=== PATIENT | female | born 1950 | race Caucasian/White ===

== ENCOUNTER 2020-04-07 13:32 | Outpatient (CLI) | payer MEDICARE, BC ==
--- NOTE | 2020-04-08 22:27 | SLEEP CARE CONSULTATION ---
Information from patient questionnaire entered by Lisa Bryson. I have reviewed and concur with the information entered by Lisa Bryson. This document represents the service I personally performed and the decisions made by me, Luda Rodriguez MD, [facility]. History of Present Illness Service Date and Time: 04/07/2020 1332 Reason for Visit: New patient, Previously diagnosed sleep apnea (Moderate - 22.7 in 2008), sleep apnea on CPAP therapy, Re-establish care Chief Complaint: reports: Other (I have had sleep apnea for 12 years) Duration of Symptoms: 15 years plus Usual bedtime: 10-11 pm Time it takes to fall asleep: 30 min Snores at night: Yes Observed to quit breathing while asleep: Yes Toss, Turn, or Twitch while sleeping: Yes Recalls having dreams: No Usually gets out of bed at: 8:30 am Feels refreshed in the morning: Yes Morning headache: No Sleepy or fatigued during the day: No Ever fallen asleep while driving: Yes Takes day naps: No Dreams during day naps: No Prior sleep studies: Yes Year and Where: 2008 - [facility] Additional HPI information: I had the pleasure of seeing Ms. Byrnes today regarding obstructive sleep apnea-hypopnea. As you know, she is a 69 year old lady who was diagnosed with the sleep-disordered breathing originally in [place] and here in 2008. The AHI was 22.7. She was prescribed a CPAP. She went to live in [place] for a while and got a new machine there three years ago. She thinks it is set on 8 cmH2O. She uses every night and all night. She wears a [employer]ics DreamWear nasal cushion mask. Her machine does not have a memory card and, therefore, we do not have the compliance data. Since she moved back to [facility] several months ago, she has not gotten any supplies. She finds the treatment very beneficial. She tried using an oral appliance but it moved her teeth. - Parasomnia Symptoms Ever been unable to move upon waking from sleep: No Ever felt weak in the knees when startled or emotional: No Bothered by creepy, crawly, restless sensations in legs: No Problems with memory or concentration: No Subjective Initial [place] Sleepiness Scale score: 1 (in 2008) Current [place] Sleepiness Scale score: 21 Past Medical History Past Medical History: reports: Arthritis, Anxiety, Asthma, Depression Social History The patient's occupation is a Retired. Patient is and lives in [place]. Have you smoked in the past 12 months: No Years of smokin Quit date: 1992 Alcohol use: Yes Alcohol amount and frequency: 1 drink 3 days a week Caffeine use: Yes Caffeine amount and frequency: 1 cup coffee Family History Family history of sleep disordered breathing: No Allergies and Home Medications Drug allergies reviewed: Yes Home medication list reviewed: Yes Review of Systems Cardiovascular: reports: palpitations Respiratory: reports: wheeze, other (asthma) Gastrointestinal: denies: heartburn, difficulty swallowing, nausea, vomitting, diarrhea, abdominal pain, other Urinary: denies: incontinence, frequency, urgency, impotence, other Neurological: denies: headaches, seizure, head trauma, disorientation, speech dysfunction, gait or balance problems, fainting or unconsciousness, other Psychiatric: reports: anxiety Ear/Nose/Throat: reports: sinus problems, tonsillectomy, wisdom teeth removed Endocrine: denies: thyroid disease, history of goiter, sluggishness, too hot or cold, excessive thirst, increased appetite, increased urination, unexplained weakness, other Musculoskeletal: denies: joint pain, neck pain, back pain, joint swelling, muscle pain or cramping, mobility problems, other Immunologic: denies: sneezing, rash, itching, allergies to food or environment, other Physical Exam Height: 5 ft 8 in Weight: 213 lb Body Mass Index: 32.3 BMI Classification: Obese Impression and Plan IMPRESSION: 1. Obstructive Sleep Apnea-Hypopnea Syndrome, moderate, as previously diagnosed. The patient has had good treatment compliance. The effectiveness is unknown. The patient experiences improvement on the treatment. Narrow oropharynx and obesity are common predisposing factors for obstructive sleep apnea-hypopnea syndrome. I will order her new supplies. She would like to go back to [facility] where she got her old machine from in 2008. Plan: 1. Prescription made for supplies. 2. The patient is to buy an SD card and put it into her CPAP, so that we have a compliance/efficacy report. 3. Attempt to lose weight. 4. Return for follow up in a year or earlier if there is any problem. Visit Type: In Office Time Spent with Patient (minutes): 15 Provider Statement: I spent 100% of the Face to Face Visit with the patient with greater than 50% spent counseling the patient and coordination of care.
== END 2020-04-07 13:33 | disposition home or self-care (01) ==
LOC: SC 13:32
PROVIDERS: ATTEND Internal Medicine Pulmonary Disease
DX: G47.33 Obstructive sleep apnea (adult) (pediatric) (principal); E66.9 Obesity, unspecified; Z68.32 Body mass index [BMI] 32.0-32.9, adult
CPT/HCPCS: 99203; G0463; 99212

== ENCOUNTER 2020-09-04 | Outpatient (CLI) | payer MEDICARE, BC | END 2020-09-04 15:36 | disposition EMS.NT ==

== ENCOUNTER 2020-10-10 13:50 | Outpatient (CLI) | payer MEDICARE, BC ==
[2020-10-10 22:32] LABS: CANDIDA KRUSEI DNA UNRESOLVED (NEGATIVE)
[2020-10-10 22:33] LABS: CANDIDA GROUP DNA UNRESOLVED (NEGATIVE); TRICHOMONAS VAGINALIS DNA UNRESOLVED (NEGATIVE)
== END 2020-10-10 23:59 | disposition home or self-care (01) ==
LOC: LAB.R 13:50
PROVIDERS: ATTEND Family Medicine
DX: R30.0 Dysuria (principal); N76.0 Acute vaginitis
CPT/HCPCS: 87086; 87661; 87801

== ENCOUNTER 2020-11-16 16:44 | Outpatient (CLI) | payer MEDICARE, BC | END 2020-11-16 16:45 | disposition home or self-care (01) | LOC: COV 16:44 | PROVIDERS: ATTEND Otolaryngology Otology & Neurotology | DX: Z01.812 Encounter for preprocedural laboratory examination (principal); Z20.822 Contact with and (suspected) exposure to COVID-19 ==

== ENCOUNTER 2020-12-27 14:02 | Outpatient (CLI) | payer MEDICARE, BC | END 2020-12-27 23:59 | disposition home or self-care (01) | LOC: LAB.N 14:02 | PROVIDERS: ATTEND Nurse Practitioner | DX: R30.0 Dysuria (principal) | CPT/HCPCS: 87086; 87181 ==

== ENCOUNTER 2020-12-28 20:14 | Emergency (ER) | payer MEDICARE, BC ==
--- OUTSIDE RECORDS SUMMARY | 2020-12-28 20:18 | EXTERNAL MEDICAL SUMMARY RPT | Continuity of Care Document ---
:1950 Demographics Phone Unavailable Preferred Language Unknown Marital Status Unknown Mandaen Affiliation Unknown Race Unknown Ethnic Group Unknown Author Organization [place] Address [address] [phone] Phone Care Team Providers Name Role Phone MD Unavailable Unavailable RN Unavailable Unavailable Problems date description facility [id number] Acute vaginitis All [id number] Urine C&S All [id number] Vaginitis Pathogens-Affirm PROFESSOR OF MATHEMATICS III All [id number] Vulvovaginitis All 98793112 Dysuria All 13803564 Vaginitis and vulvovaginitis, unspecifi ed All Medications date description facility [id number] [facility] All 70848007 BUSPIRONE HCL All 88182447 ESCITALOPRAM OXALATE All 52401479 BUPROPION HCL All 29843173 CIPROFLOXACIN HCL All 26946625 ALBUTEROL SULFATE All 71738063 FLUTICASONE FUROATE-VILANTEROL All 68717664 TIOTROPIUM BROMIDE MONOHYDRATE All 59254568 [facility] All 25296435 FLUTICASONE FUROATE-VILANTEROL All 71640800 CIPROFLOXACIN HCL All 04536115 ESCITALOPRAM OXALATE All 64584922 TIOTROPIUM BROMIDE MONOHYDRATE All 51940047 ALBUTEROL SULFATE All 07129578 BUSPIRONE HCL All 13594874 BUPROPION HCL All 75148368 [facility] All 16414017 BUSPIRONE HCL All 95482544 ESCITALOPRAM OXALATE All 23626638 BUPROPION HCL All 02713326 CIPROFLOXACIN HCL All 08190931 ALBUTEROL SULFATE All 08946153 FLUTICASONE FUROATE-VILANTEROL All 97260057 TIOTROPIUM BROMIDE MONOHYDRATE All 04369073 [facility] TAB[facility] All 76003496 FLUTICASONE FUROATE-VILANTEROL All 17657777 CIPROFLOXACIN HCL All 16918397 ESCITALOPRAM OXALATE All 89213507 TIOTROPIUM BROMIDE MONOHYDRATE All 68639300 ALBUTEROL SULFATE All 72391593 BUSPIRONE HCL All 81332567 BUPROPION HCL All Procedures date description facility [id number] POC URINALYSIS DIP All date description facility 04530755 POC URINALYSIS DIP All Results test status date ordered by attending specimen leonor e T unknown [id number] unknown unknown unknown T unknown 83386633 unknown unknown unknown CANDIDA_GLABRATA_DNA unknown 77011403 unknown unknown un known CANDIDA_KRUSEI_DNA unknown 66525063 unknown unknown unkn own DIPSTICK_URINE_STRIP_L unknown 05735814 unknown unknown unknown OT_NUMBER Candida_glabrata_by_Re unknown 92051989 unknown unknown unknown fd-jhzv_YUT_-_htbcwth_e ulture protein_urine_semiquan unknown 87626612 unknown unknown unknown titative_dipstick_ glucose_urine_semiquan unknown 34032822 unknown unknown unknown titative Erythrocytes_area_in_U unknown 24310291 unknown unknown unknown rine_sediment_by_Micros copy_high_power_field Candida_krusei_by_Real unknown 48669639 unknown unknown unknown -Time_PCR RBC_urine_dipstick unknown 38536223 unknown unknown unkn own Albumin_Presence_in_Ur unknown 66909387 unknown unknown unknown ine urine_color unknown 61087337 unknown unknown unknown bilirubin_urine unknown 88065394 unknown unknown unknown ketones_urine_by_test_ unknown 14081876 unknown unknown unknown strip nitrite_urine_semiquan unknown 56414821 unknown unknown unknown titative pH_urine_semiquantitat unknown 67461256 unknown unknown unknown chong specific_gravity_urine unknown 09118458 unknown unknown unknown urobilinogen_urine_sem unknown 30232667 unknown unknown unknown iquantitative_dipstick_ leukocyte_esterase_uri unknown 50596685 unknown unknown unknown ne_by_dipstick appearance_urine unknown 75586096 unknown unknown unknow n urinalysis_routine unknown 76407842 unknown unknown unkn own Appearance_of_Urine unknown 85626200 unknown unknown unk nown Bilirubin.total_Presen unknown 44677395 unknown unknown unknown ce_in_Urine_by_Test_str ip Color_of_Urine unknown 65060237 unknown unknown unknown Glucose_Mass_volume_in unknown 52395614 unknown unknown unknown _Urine_by_Test_strip Ketones_Mass_volume_in unknown 89443092 unknown unknown unknown _Urine_by_Test_strip Leukocyte_esterase_Pre unknown 39690933 unknown unknown unknown sence_in_Urine_by_Test_ strip Nitrite_Presence_in_Ur unknown 65420876 unknown unknown unknown ine_by_Test_strip pH_of_Urine_by_Test_st unknown 91767612 unknown unknown unknown rip Specific_gravity_of_Ur unknown 05583894 unknown unknown unknown ine_by_Test_strip Urobilinogen_Presence_ unknown 24977823 unknown unknown unknown in_Urine_by_Test_strip Candida_glabrata_DNA_P unknown 59090168 unknown unknown unknown resence_in_Vaginal_flui d_by_NAA_with_probe_det ection T unknown 63495176 unknown unknown unknown T unknown 16150676 unknown unknown unknown CANDIDA_GLABRATA_DNA unknown 00117098 unknown unknown un known CANDIDA_KRUSEI_DNA unknown 30537374 unknown unknown unkn own DIPSTICK_URINE_STRIP_L unknown 24216053 unknown unknown unknown OT_NUMBER Candida_glabrata_by_Re unknown 32331130 unknown unknown unknown if-jxsa_AYZ_-_lzjjrrc_a ulture protein_urine_semiquan unknown 85096213 unknown unknown unknown titative_dipstick_ glucose_urine_semiquan unknown 92955218 unknown unknown unknown titative Erythrocytes_area_in_U unknown 93496187 unknown unknown unknown rine_sediment_by_Micros copy_high_power_field Candida_krusei_by_Real unknown 76853593 unknown unknown unknown -Time_PCR RBC_urine_dipstick unknown 16973509 unknown unknown unkn own Albumin_Presence_in_Ur unknown 91205363 unknown unknown unknown ine urine_color unknown 01048982 unknown unknown unknown bilirubin_urine unknown 94489317 unknown unknown unknown ketones_urine_by_test_ unknown 43833029 unknown unknown unknown strip nitrite_urine_semiquan unknown 16147471 unknown unknown unknown titative pH_urine_semiquantitat unknown 02326127 unknown unknown unknown chong specific_gravity_urine unknown 95626688 unknown unknown unknown urobilinogen_urine_sem unknown 25020925 unknown unknown unknown iquantitative_dipstick_ leukocyte_esterase_uri unknown 88221257 unknown unknown unknown ne_by_dipstick appearance_urine unknown 04560312 unknown unknown unknow n urinalysis_routine unknown 34390441 unknown unknown unkn own Appearance_of_Urine unknown 99297346 unknown unknown unk nown Bilirubin.total_Presen unknown 30490809 unknown unknown unknown ce_in_Urine_by_Test_str ip Color_of_Urine unknown 10941590 unknown unknown unknown Glucose_Mass_volume_in unknown 03400268 unknown unknown unknown _Urine_by_Test_strip Ketones_Mass_volume_in unknown 46976417 unknown unknown unknown _Urine_by_Test_strip Leukocyte_esterase_Pre unknown 32608866 unknown unknown unknown sence_in_Urine_by_Test_ strip Nitrite_Presence_in_Ur unknown 63772019 unknown unknown unknown ine_by_Test_strip pH_of_Urine_by_Test_st unknown 52112716 unknown unknown unknown rip Specific_gravity_of_Ur unknown 58449063 unknown unknown unknown ine_by_Test_strip Urobilinogen_Presence_ unknown 87608669 unknown unknown unknown in_Urine_by_Test_strip Candida_glabrata_DNA_P unknown 72312658 unknown unknown unknown resence_in_Vaginal_flui d_by_NAA_with_probe_det ection facility observation status value reference units lab abnor mal line range code notes All T unknown UNRESOLVED unknown C._GL unknown unknown ABRATA _DNA All T unknown UNRESOLVED unknown C._KR unknown unknown USEI_D NA All CANDIDA_GLAB unknown UNRESOLVED unknown CGLAB unk nown unknown RATA_DNA RATA_D NA All CANDIDA_KRUS unknown UNRESOLVED unknown CKRUS unk nown unknown EI_DNA EI_DNA All DIPSTICK_URI unknown 6019 unknown _1014 unknown unknown NE_STRIP_LOT_ 00 NUMBER All Candida_glab unknown UNRESOLVED unknown _1087 unk nown unknown rata_by_Real- 87 time_PCR_-_va ginal_culture All protein_urin unknown trace unknown _118 unknown unknown e_semiquantit ative_dipstic k_ All glucose_urin unknown negative unknown _123 unkno wn unknown e_semiquantit ative All Erythrocytes unknown negative unknown _1394 unkno wn unknown _area_in_Urin 5-1 e_sediment_by _Microscopy_h igh_power_fie ld All Candida_krus unknown UNRESOLVED unknown _1535 unk nown unknown ei_by_Real-Ti 62 me_PCR All RBC_urine_di unknown negative unknown _1700 unkno wn unknown pstick 005 All Albumin_Pres unknown trace unknown _1753 unknown unknown ence_in_Urine -3 All urine_color unknown straw unknown _2751 unknown unknown All bilirubin_ur unknown negative unknown _319 unkno wn unknown ine All ketones_urin unknown negative unknown _322 unkno wn unknown e_by_test_str ip All nitrite_urin unknown negative unknown _323 unkno wn unknown e_semiquantit ative All pH_urine_sem unknown 8.5 unknown _324 unknown unknown iquantitative All specific_gra unknown 1.005 unknown _325 unknown unknown vity_urine All urobilinogen unknown 1 unknown _326 unknown unknown _urine_semiqu antitative_di pstick_ All leukocyte_es unknown negative unknown _327 unkno wn unknown terase_urine_ by_dipstick All appearance_u unknown clear unknown _328 unknown unknown rine All urinalysis_r unknown Clean Catch unknown _47 un known unknown outine All Appearance_o unknown clear unknown _5767 unknown unknown f_Urine -9 All Bilirubin.to unknown negative unknown _5770 unkno wn unknown tal_Presence_ -3 in_Urine_by_T est_strip All Color_of_Uri unknown straw unknown _5778 unknown unknown ne -6 All Glucose_Mass unknown negative unknown _5792 unkno wn unknown _volume_in_Ur -7 ine_by_Test_s trip All Ketones_Mass unknown negative unknown _5797 unkno wn unknown _volume_in_Ur -6 ine_by_Test_s trip All Leukocyte_es unknown negative unknown _5799 unkno wn unknown terase_Presen -2 ce_in_Urine_b y_Test_strip All Nitrite_Pres unknown negative unknown _5802 unkno wn unknown ence_in_Urine -4 _by_Test_stri p All pH_of_Urine_ unknown 8.5 unknown _5803 unknown unknown by_Test_strip -2 All Specific_gra unknown 1.005 unknown _5811 unknown unknown vity_of_Urine -5 _by_Test_stri p All Urobilinogen unknown 1 unknown _5818 unknown unknown _Presence_in_ -0 Urine_by_Test _strip All Candida_glab unknown UNRESOLVED unknown _6956 unk nown unknown rata_DNA_Pres 3-5 ence_in_Vagin al_fluid_by_N AA_with_probe _detection All T unknown UNRESOLVED unknown C._GL unknown unknown ABRATA _DNA All T unknown UNRESOLVED unknown C._KR unknown unknown USEI_D NA All CANDIDA_GLAB unknown UNRESOLVED unknown CGLAB unk nown unknown RATA_DNA RATA_D NA All CANDIDA_KRUS unknown UNRESOLVED unknown CKRUS unk nown unknown EI_DNA EI_DNA All DIPSTICK_URI unknown 6019 unknown _1014 unknown unknown NE_STRIP_LOT_ 00 NUMBER All Candida_glab unknown UNRESOLVED unknown _1087 unk nown unknown rata_by_Real- 87 time_PCR_-_va ginal_culture All protein_urin unknown trace unknown _118 unknown unknown e_semiquantit ative_dipstic k_ All glucose_urin unknown negative unknown _123 unkno wn unknown e_semiquantit ative All Erythrocytes unknown negative unknown _1394 unkno wn unknown _area_in_Urin 5-1 e_sediment_by _Microscopy_h igh_power_fie ld All Candida_krus unknown UNRESOLVED unknown _1535 unk nown unknown ei_by_Real-Ti 62 me_PCR All RBC_urine_di unknown negative unknown _1700 unkno wn unknown pstick 005 All Albumin_Pres unknown trace unknown _1753 unknown unknown ence_in_Urine -3 All urine_color unknown straw unknown _2751 unknown unknown All bilirubin_ur unknown negative unknown _319 unkno wn unknown ine All ketones_urin unknown negative unknown _322 unkno wn unknown e_by_test_str ip All nitrite_urin unknown negative unknown _323 unkno wn unknown e_semiquantit ative All pH_urine_sem unknown 8.5 unknown _324 unknown unknown iquantitative All specific_gra unknown 1.005 unknown _325 unknown unknown vity_urine All urobilinogen unknown 1 unknown _326 unknown unknown _urine_semiqu antitative_di pstick_ All leukocyte_es unknown negative unknown _327 unkno wn unknown terase_urine_ by_dipstick All appearance_u unknown clear unknown _328 unknown unknown rine All urinalysis_r unknown Clean Catch unknown _47 un known unknown outine All Appearance_o unknown clear unknown _5767 unknown unknown f_Urine -9 All Bilirubin.to unknown negative unknown _5770 unkno wn unknown tal_Presence_ -3 in_Urine_by_T est_strip All Color_of_Uri unknown straw unknown _5778 unknown unknown ne -6 All Glucose_Mass unknown negative unknown _5792 unkno wn unknown _volume_in_Ur -7 ine_by_Test_s trip All Ketones_Mass unknown negative unknown _5797 unkno wn unknown _volume_in_Ur -6 ine_by_Test_s trip All Leukocyte_es unknown negative unknown _5799 unkno wn unknown terase_Presen -2 ce_in_Urine_b y_Test_strip All Nitrite_Pres unknown negative unknown _5802 unkno wn unknown ence_in_Urine -4 _by_Test_stri p All pH_of_Urine_ unknown 8.5 unknown _5803 unknown unknown by_Test_strip -2 All Specific_gra unknown 1.005 unknown _5811 unknown unknown vity_of_Urine -5 _by_Test_stri p All Urobilinogen unknown 1 unknown _5818 unknown unknown _Presence_in_ -0 Urine_by_Test _strip All Candida_glab unknown UNRESOLVED unknown _6956 unk nown unknown rata_DNA_Pres 3-5 ence_in_Vagin al_fluid_by_N AA_with_probe _detection Vital Signs date measurement value source 20201010 BMI 32.81 kg/m2 20201010 BP_diastolic 82 mm[Hg] 31559149 BP_systolic 133 mm[Hg] 09696830 heart_rate 69 /min 20201010 height_metric 172.72 cm 20201010 height_standard 68 in 20201010 respiration_rate 20 /min 20201010 temperature_metric 36.72 C 20201010 temperature_standard 98.1 F 20201010 weight_metric 97.52 kg 20201010 weight_standard 215 lb 20201010 BMI 32.81 kg/m2 01807606 BP_diastolic 82 mm[Hg] 66939268 BP_systolic 133 mm[Hg] 12125454 heart_rate 69 /min 20201010 height_metric 172.72 cm 20201010 height_standard 68 in 20201010 respiration_rate 20 /min 20201010 temperature_metric 36.72 C 20201010 temperature_standard 98.1 F 20201010 weight_metric 97.52 kg 20201010 weight_standard 215 lb Social History date description facility [id number]
[2020-12-28 20:22] VITALS: BP 190/84
--- OUTSIDE RECORDS SUMMARY | 2020-12-28 20:34 | EXTERNAL MEDICAL SUMMARY RPT | Continuity of Care Document ---
:1950 Demographics Phone Unavailable Preferred Language Unknown Marital Status Unknown Oriental Orthodox Affiliation Unknown Race Unknown Ethnic Group Unknown Author Organization [place] Address [address] [id number] Phone Care Team Providers Name Role Phone Enrike PALOMO, Unavailable Unavailable RN, Mell Lama, Unavailable Unavailable Problems date description facility [id number] Acute vaginitis All [id number] Urine C&S All [id number] Vaginitis Pathogens-Affirm [employer] III All [id number] Vulvovaginitis All [id number] Dysuria All [id number] Vaginitis and vulvovaginitis, unspecifi ed All Medications date description facility [id number] MONTELUKAST SODIUM TABS All [id number] BUSPIRONE HCL All 86205831 ESCITALOPRAM OXALATE All 87376571 BUPROPION HCL All [id number] CIPROFLOXACIN HCL All 31086183 ALBUTEROL SULFATE All 53562424 FLUTICASONE FUROATE-VILANTEROL All 95452314 TIOTROPIUM BROMIDE MONOHYDRATE All 01116811 MONTELUKAST SODIUM TABS All 89569640 FLUTICASONE FUROATE-VILANTEROL All 34133773 CIPROFLOXACIN HCL All 07690197 ESCITALOPRAM OXALATE All 18194034 TIOTROPIUM BROMIDE MONOHYDRATE All 79544287 ALBUTEROL SULFATE All 38973989 BUSPIRONE HCL All 16209903 BUPROPION HCL All 46477016 MONTELUKAST SODIUM TABS All 43633685 BUSPIRONE HCL All 58643455 ESCITALOPRAM OXALATE All 30626686 BUPROPION HCL All 41886589 CIPROFLOXACIN HCL All 31799601 ALBUTEROL SULFATE All 49644112 FLUTICASONE FUROATE-VILANTEROL All 24853947 TIOTROPIUM BROMIDE MONOHYDRATE All 47521864 MONTELUKAST SODIUM TABS All 72775824 FLUTICASONE FUROATE-VILANTEROL All 27992671 CIPROFLOXACIN HCL All 45559522 ESCITALOPRAM OXALATE All 30678797 TIOTROPIUM BROMIDE MONOHYDRATE All 69937570 ALBUTEROL SULFATE All 93665800 BUSPIRONE HCL All 81057717 BUPROPION HCL All Procedures date description facility [id number] POC URINALYSIS DIP All date description facility 98307339 POC URINALYSIS DIP All Results test status date ordered by attending specimen leonor e T unknown [id number] unknown unknown unknown T unknown [id number] unknown unknown unknown CANDIDA_GLABRATA_DNA unknown 14676046 unknown unknown un known CANDIDA_KRUSEI_DNA unknown [id number] unknown unknown unkn own DIPSTICK_URINE_STRIP_L unknown 62781984 unknown unknown unknown OT_NUMBER Candida_glabrata_by_Re unknown 60759043 unknown unknown unknown ye-nnch_JFS_-_usnzmah_o ulture protein_urine_semiquan unknown 54203431 unknown unknown unknown titative_dipstick_ glucose_urine_semiquan unknown 77942130 unknown unknown unknown titative Erythrocytes_area_in_U unknown 14268665 unknown unknown unknown rine_sediment_by_Micros copy_high_power_field Candida_krusei_by_Real unknown 49215005 unknown unknown unknown -Time_PCR RBC_urine_dipstick unknown 29048551 unknown unknown unkn own Albumin_Presence_in_Ur unknown 97526269 unknown unknown unknown ine urine_color unknown 91364379 unknown unknown unknown bilirubin_urine unknown 54666785 unknown unknown unknown ketones_urine_by_test_ unknown 74153062 unknown unknown unknown strip nitrite_urine_semiquan unknown 22137552 unknown unknown unknown titative pH_urine_semiquantitat unknown 55027174 unknown unknown unknown chong specific_gravity_urine unknown 17539903 unknown unknown unknown urobilinogen_urine_sem unknown 12604780 unknown unknown unknown iquantitative_dipstick_ leukocyte_esterase_uri unknown 63084140 unknown unknown unknown ne_by_dipstick appearance_urine unknown 53064178 unknown unknown unknow n urinalysis_routine unknown 28758885 unknown unknown unkn own Appearance_of_Urine unknown 06757373 unknown unknown unk nown Bilirubin.total_Presen unknown 04654260 unknown unknown unknown ce_in_Urine_by_Test_str ip Color_of_Urine unknown 48214098 unknown unknown unknown Glucose_Mass_volume_in unknown 28587422 unknown unknown unknown _Urine_by_Test_strip Ketones_Mass_volume_in unknown 61311615 unknown unknown unknown _Urine_by_Test_strip Leukocyte_esterase_Pre unknown 11298417 unknown unknown unknown sence_in_Urine_by_Test_ strip Nitrite_Presence_in_Ur unknown 50574292 unknown unknown unknown ine_by_Test_strip pH_of_Urine_by_Test_st unknown 53346030 unknown unknown unknown rip Specific_gravity_of_Ur unknown 88330356 unknown unknown unknown ine_by_Test_strip Urobilinogen_Presence_ unknown 48980430 unknown unknown unknown in_Urine_by_Test_strip Candida_glabrata_DNA_P unknown 60550579 unknown unknown unknown resence_in_Vaginal_flui d_by_NAA_with_probe_det ection T unknown 79402118 unknown unknown unknown T unknown 56016397 unknown unknown unknown CANDIDA_GLABRATA_DNA unknown 29432715 unknown unknown un known CANDIDA_KRUSEI_DNA unknown 92529318 unknown unknown unkn own DIPSTICK_URINE_STRIP_L unknown 24760921 unknown unknown unknown OT_NUMBER Candida_glabrata_by_Re unknown 25262004 unknown unknown unknown uz-mdmn_MMI_-_xidpbyr_x ulture protein_urine_semiquan unknown 97191502 unknown unknown unknown titative_dipstick_ glucose_urine_semiquan unknown 67558352 unknown unknown unknown titative Erythrocytes_area_in_U unknown 92510365 unknown unknown unknown rine_sediment_by_Micros copy_high_power_field Candida_krusei_by_Real unknown 54230412 unknown unknown unknown -Time_PCR RBC_urine_dipstick unknown 05841958 unknown unknown unkn own Albumin_Presence_in_Ur unknown 09800589 unknown unknown unknown ine urine_color unknown 78611114 unknown unknown unknown bilirubin_urine unknown 97404545 unknown unknown unknown ketones_urine_by_test_ unknown 02092680 unknown unknown unknown strip nitrite_urine_semiquan unknown 90850362 unknown unknown unknown titative pH_urine_semiquantitat unknown 72723866 unknown unknown unknown chong specific_gravity_urine unknown 21663305 unknown unknown unknown urobilinogen_urine_sem unknown 99115554 unknown unknown unknown iquantitative_dipstick_ leukocyte_esterase_uri unknown 38629937 unknown unknown unknown ne_by_dipstick appearance_urine unknown 49388422 unknown unknown unknow n urinalysis_routine unknown 67153388 unknown unknown unkn own Appearance_of_Urine unknown 52615803 unknown unknown unk nown Bilirubin.total_Presen unknown 85830333 unknown unknown unknown ce_in_Urine_by_Test_str ip Color_of_Urine unknown 84641625 unknown unknown unknown Glucose_Mass_volume_in unknown 19264760 unknown unknown unknown _Urine_by_Test_strip Ketones_Mass_volume_in unknown 06250232 unknown unknown unknown _Urine_by_Test_strip Leukocyte_esterase_Pre unknown 18860065 unknown unknown unknown sence_in_Urine_by_Test_ strip Nitrite_Presence_in_Ur unknown 16441827 unknown unknown unknown ine_by_Test_strip pH_of_Urine_by_Test_st unknown 99174711 unknown unknown unknown rip Specific_gravity_of_Ur unknown 69161651 unknown unknown unknown ine_by_Test_strip Urobilinogen_Presence_ unknown 10622164 unknown unknown unknown in_Urine_by_Test_strip Candida_glabrata_DNA_P unknown 15778116 unknown unknown unknown resence_in_Vaginal_flui d_by_NAA_with_probe_det ection facility [...] BMI 32.81 kg/m2 20201010 BP_diastolic 82 mm[Hg] 20201010 BP_systolic 133 mm[Hg] 20201010 heart_rate 69 /min 20201010 height_metric 172.72 cm 20201010 height_standard 68 in 20201010 respiration_rate 20 /min 20201010 temperature_metric 36.72 C 20201010 temperature_standard 98.1 F 20201010 weight_metric 97.52 kg 20201010 weight_standard 215 lb 20201010 BMI 32.81 kg/m2 20201010 BP_diastolic 82 mm[Hg] 55772139 BP_systolic 133 mm[Hg] 20201010 heart_rate 69 /min 20201010 height_metric 172.72 cm 20201010 height_standard 68 in 20201010 respiration_rate 20 /min 20201010 temperature_metric 36.72 C 20201010 temperature_standard 98.1 F 20201010 weight_metric 97.52 kg 20201010 weight_standard 215 lb Social History date description facility [id number]
[2020-12-28] MEDS ORDERED: cefTRIAXone 1 GM VIAL IM STA (20:36)
[2020-12-28] MEDS ORDERED: HYDROcod/ACETAM 5/325 MG TABLET PO STA (20:36)
[2020-12-28] MEDS ORDERED: LIDOCAINE 1% 2 ML VIAL MC ONE (20:36)
--- NOTE | 2020-12-28 20:39 | ED Physician Documentation ---
History of Present Illness - Stated complaint Stated Complaint: FEMALE - Chief complaint Chief Complaint: UTI - History obtained from History obtained from: Patient - History of Present Illness Timing: How many days ago (several) Pain level max: 5 Pain level now: 5 - Additonal information Additional information: 70-year-old female presents to the emergency department with dysuria and urinary frequency. She states that she was placed on Macrobid yesterday for UTI, but this has not worked for her in the past. She states that she would like a different antibiotic. No fevers. No chills. No vomiting. She states that she has had the same UTI since September of this year. She has been on ciprofloxacin in the past as well. She states that did not help either. She has not yet seen a urologist. No back pain. No fevers. No vomiting. Worse with urination, nothing makes it better Review of Systems Ten Systems: 10 systems reviewed and negative Constitutional: denies: Fever, Chills Throat: denies: Sore throat Cardiac: denies: Chest pain / pressure Respiratory: denies: Cough, Wheezing GI: denies: Vomiting, Diarrhea : reports: Dysuria, Frequency, Hesitancy Skin: denies: Rash Neurologic: denies: Headache PD PAST MEDICAL HISTORY - Past Medical History Past Medical History: Yes Respiratory: Asthma - Present Medications Home Medications: Ambulatory Orders Medication Instructions Recorded Confirmed Cefpodoxime Proxetil [Vantin] 100 mg PO Q12H #14 tablet 12/28/20 HYDROcod/ACETAM 5/325 [Stapleton 5/325] 1 - 2 ea PO Q6H PRN #14 tablet 12/28/20 Montelukast [Singulair] 10 mg PO QPM 12/28/20 12/28/20 Nitrofurantoin Monohyd/M-Cryst 100 mg PO BID 12/28/20 12/28/20 [Macrobid 100 mg Capsule] - Allergies Allergies/Adverse Reactions: Allergies Allergy/AdvReac Type Severity Reaction Status Date / Time sulfamethoxazole Allergy Rash Verified 12/28/20 20:20 [From ] trimethoprim [From ] Allergy Rash Verified 12/28/20 20:20 fentanyl AdvReac Unknown Verified 12/28/20 20:20 midazolam [From ] AdvReac Unknown Verified 12/28/20 20:20 - Social History Does the pt have substance abuse?: No - Family History Family history: reports: Non contributory PD ED PE NORMAL - Vitals Vital signs reviewed: Yes - General General: Alert and oriented X 3, No acute distress - HEENT HEENT: Moist mucous membranes - Neck Neck: Supple, no meningeal sign - Cardiac Cardiac: RRR, Strong equal pulses - Respiratory Respiratory: No respiratory distress, Clear bilaterally - Abdomen Abdomen: Soft, Non tender, Non distended - Back Back: No CVA TTP - Derm Derm: Warm and dry - Neuro Neuro: Alert and oriented X 3 Results - Vitals Vitals: Vital Signs - 24 hr 12/28/20 20:20 Temperature 36.6 C Heart Rate 71 Respiratory 16 Rate Blood Pressure 190/84 H O2 Saturation 98 Oxygen O2 Source Room air PD MEDICAL DECISION MAKING - ED course Complexity details: reviewed results, re-evaluated patient, considered d ifferential, d/w patient ED course: Patient with a known UTI. Her urine is growing out E. coli, sensitivities not available. Given a dose of Rocephin here as she has been on Cipro and Macrobid without relief. We will place on Cefpodoxime for home. Recommend she follow-up with her doctor for urine culture results. She also requested the name of a urologist for potential follow-up. Informed her that she may need a referral from her primary care provider to see urology depending on her insurance. Patient is well-appearing, nontoxic. Afebrile. Patient counseled regarding signs and symptoms for which I believe and urgent re-evaluation would be necessary. Patient with good understanding of and agreement to plan and is comfortable going home at this time This document was made in part using voice recognition software. While efforts are made to proofread this document, sound alike and grammatical errors may occur. Departure - Departure Disposition: Home, Self Care Clinical Impression: Urinary tract infection Qualifiers: Urinary tract infection type: acute cystitis Hematuria presence: without hematuria Qualified Code(s): N30.00 - Acute cystitis without hematuria Condition: Good Instructions: ED UTI Cystitis Female Follow-Up: Alea Hatch MD [Physician No Access] - Bradley Gallego MD [Primary Care Provider] - Within 1 week Prescriptions: HYDROcod/ACETAM 5/325 [Stapleton 5/325] 1 - 2 ea PO Q6H PRN #14 tablet PRN Reason: Pain Cefpodoxime Proxetil [Vantin] 100 mg PO Q12H #14 tablet Comments: We will place you on Cefpodoxime to see if this works better for you. Your urine culture should return tomorrow. Follow-up with your doctor for further care. They may want to refer you to urology as well. You can stop the macrobid. Do not drink alcohol or drive while on narcotic pain medicine. Note that many narcotic pain relievers also contain tylenol/acetaminophen. Please ensure that your total dose of acetaminophen from all sources does not exceed 3 grams (3000mg) per day. You may constipated on this medication, take a stool softener such as "Colace" twice a day while you are on it. Also recommend a qtyg-luj-zjpuyik laxative such as senna or MiraLAX any day that you do not have a bowel movement. If you received narcotic pain medication in the emergency department, do not drive or operate machinery for the next 24 hours. Discharge Date/Time: 12/28/20 20:53
== END 2020-12-28 20:53 | disposition home or self-care (01) ==
LOC: ED 20:14
DX: N30.00 Acute cystitis without hematuria (principal); B96.20 Unspecified Escherichia coli [E. coli] as the cause of diseases classified elsewhere
CPT/HCPCS: 96372; 99283; 99284; A9270

== ENCOUNTER 2021-04-26 14:37 | Outpatient (CLI) | payer MEDICARE, BC ==
--- NOTE | 2021-04-26 15:09 | SLEEP CARE CONSULTATION ---
Information from patient questionnaire entered by Lisa Bryson. I have reviewed and concur with the information entered by Lisa Bryson. This document represents the service I personally performed and the decisions made by me, Luda Rodriguez MD, [facility]. History of Present Illness Service Date and Time: 04/26/2021 1437 Previous diagnosis: Moderate, Obstructive Sleep Apnea-Hypopnea Syndrome AHI: 22.7 (in 2008) Reason for follow up: annual (last seen 04/2020) Equipment type: CPAP Equipment obtained from: [employer] Mask style: Nasal Mask brand: Respironics (Dreamwear) Prior sleep studies: Yes Year and Where: 2008 - [facility] HPI additional information: HPI: Ms. Byrnes returned today for annual follow up of nasal CPAP therapy. She was diagnosed to have moderate obstructive sleep apnea-hypopnea syndrome. The patient went to [facility] for the equipment and was fitted with a Respironics DreamWear nasal cushion mask. She reports using the device nightly and all through the night. The compliance report shows usage in 179 nights out of the p ast 180 nights, averaging 8.1 hours a night. She complained of the heated humidifier being very hot at night but no particular problem with the device such as soreness on the face, dry nose, epistaxis, nasal congestion or headache. She thinks that the pressure of 8 cmH2O is comfortable. On the CPAP therapy she notices improvement in her sleep quality, and that she wakes up feeling fresher in the morning and more awake/alert during the day. The Leslie Sleepiness Scale score 5. Her notices no snore at all. The average residual AHI is 2.2: and air leak, 4.1 L/min. CPAP Compliance Data - Data Reviewed with Patient Average duration of nightly device use: 8 hr 7 min Compliance rate %: 97 (180 days) Current pressure setting (cmH2O): 8 Humidity settin Average residual AHI: 2.2 Subjective Patient concerns: reports: other (water heats up hot, refill everyday) Initial Leslie Sleepiness Scale score: 1 (in 2008) Current Leslie Sleepiness Scale score: 5 Allergies and Home Medications Drug allergies reviewed: Yes Home medication list reviewed: Yes Review of Systems Review of systems same as previous: Yes Physical Exam Height: 5 ft 8 in Weight: 215 lb Body Mass Index: 32.6 BMI Classification: Obese Impression and Plan IMPRESSION: 1. Obstructive Sleep Apnea-Hypopnea Syndrome, moderate, with the patient doing well on nasal CPAP therapy. She has excellent compliance and significant clinical improvement. The current pressure appears effective and comfortable. Overall, she is very satisfied with treatment and plans to continue with it long-term. No adjustment is necessary today. PLAN: 1. Continue with nasal CPAP therapy with 8 cmH2O. 2. Try to lose weight 3. Reduce the heated humidifier setting. 4. Return in one year for follow up or earlier if there is any problem with the treatment. Follow up with Sleep Care in: 1 year Follow up recommended for: Weight management Visit Type: In Office Time Spent with Patient (minutes): 15 Provider Statement: I spent 100% of the Face to Face Visit with the patient with greater than 50% spent counseling the patient and coordination of care.
== END 2021-04-26 14:38 | disposition home or self-care (01) ==
LOC: SC 14:37
PROVIDERS: ATTEND Internal Medicine Pulmonary Disease
DX: G47.33 Obstructive sleep apnea (adult) (pediatric) (principal); E66.9 Obesity, unspecified; Z68.32 Body mass index [BMI] 32.0-32.9, adult
CPT/HCPCS: 99212; G0463

== ENCOUNTER 2021-06-28 13:27 | Outpatient (CLI) | payer MEDICARE, BC ==
[2021-06-28] MEDS ORDERED: ALBUTEROL 1 PUFF INH STA (15:47)
== END 2021-06-28 13:28 | disposition home or self-care (01) ==
LOC: RT 13:27
PROVIDERS: ATTEND Physician Assistant
DX: R06.2 Wheezing (principal)
CPT/HCPCS: 94060

== ENCOUNTER 2021-08-04 13:35 | Outpatient (CLI) | payer MEDICARE, BC ==
--- NOTE | 2021-08-05 13:28 | Mammography Report ---
BILATERAL DIGITAL SCREENING MAMMOGRAM 3D/2D: 08/04/2021 CLINICAL: Routine screening. Comparison is made to exams dated: 06/23/2016 mammogram and 06/11/2015 mammogram - [facility]. There are scattered fibroglandular elements in both breasts. No significant masses, calcifications, or other findings are seen in either breast. There has been no significant interval change. IMPRESSION: NEGATIVE There is no mammographic evidence of malignancy. A 1 year screening mammogram is recommended. This exam was interpreted at Station ID: [id number]. NOTE: For mammograms, a report in lay terms will be sent to the patient. Approximately 15% of breast malignancies will not be visualized mammographically. In the management of a palpable breast mass, a negative mammogram must not discourage biopsy of a clinically suspicious lesion. Electronically Signed By: Michi Portillo M.D. ar/ijmrad:08/04/2021 14:53:10 ACR BI-RADS Category 1: Negative 3341F PARENCHYMAL PATTERN: (A) - The breast(s) demonstrate(s) scattered fibroglandular densities. BI-RADS CATEGORY: (1) - 1 RECOMMENDATION: (ANNUAL) - Recommend routine annual screening mammography. [id number] 1 year screening LATERALITY: (B)
== END 2021-08-04 13:36 | disposition home or self-care (01) ==
LOC: DI 13:35
PROVIDERS: ATTEND Physician Assistant
DX: Z12.31 Encounter for screening mammogram for malignant neoplasm of breast (principal); N95.9 Unspecified menopausal and perimenopausal disorder

== ENCOUNTER 2021-10-05 11:36 | Outpatient (CLI) | payer BC, MEDICARE ==
--- NOTE | 2021-10-05 13:48 | XRAY Report ---
PROCEDURE: Chest 2 View X-Ray INDICATIONS: COPD,WHEEZING TECHNIQUE: 2 view(s) of the chest. COMPARISON: CXR 08/16/2012. FINDINGS: Surgical changes and devices: None. Lungs and pleura: No pleural effusions or pneumothorax. No consolidation. Suspect emphysematous galindo ge. Mediastinum: Mediastinal contours are unchanged. Asymmetric elevation of the right hemidiaphragm. He art size is normal. Bones and chest wall: No suspicious bony abnormalities. Soft tissues appear unremarkable. IMPRESSION: No acute cardiopulmonary abnormality. Suspect emphysematous change. Reviewed by: Osvaldo Saez MD on 10/05/2021 1:46 PM [facility] Approved by: Osvaldo Saez MD on 10/05/2021 1:46 PM PST Station ID: [id number]
== END 2021-10-05 11:37 | disposition home or self-care (01) ==
LOC: DI.N 11:36
PROVIDERS: ATTEND Physician Assistant
DX: J44.9 Chronic obstructive pulmonary disease, unspecified (principal); R06.2 Wheezing

== ENCOUNTER 2022-02-03 09:49 | Outpatient (CLI) | payer MEDICARE, BC ==
--- NOTE | 2022-02-03 15:56 | DEXA Report ---
PROCEDURE: Dexa Spine and/or Hip INDICATIONS: POST MENOPAUSAL TECHNIQUE: Dual energy x-ray absorptiometry (DXA) was performed on a [employer] System. Regions measur ed are the AP Spine, femoral neck, and if needed forearm. COMPARISON: None. FINDINGS: Lumbar Spine: Bone Mineral Density 1.332 g/cm/cm,T score 1.1, normal Left Hip: Bone Mineral Density 0.824 g/cm/cm,T score -1.5, osteopenia Left Femoral Neck: Bone Mineral Density 0.810 g/cm/cm, T score -1.6, osteopenia (T score greater or equal to -1.0: NORMAL) (T score from -1.1 to -2.4: OSTEOPENIA) (T score less than or equal to -2.5 to: OSTEOPOROSIS) Impression: Osteopenia. Patients with diagnosis of osteoporosis or osteopenia should have regular bone mineral density assess ment. For those eligible for Medicare, routine testing is allowed once every 2 years. Testing frequ ency can be increased for patients who have rapidly progressing disease or for those who are receivin g medical therapy to restore bone mass. Reviewed by: Nhi Clark MD, PhD on 02/03/2022 3:54 PM PDT Approved by: Nhi Clark MD, PhD on 02/03/2022 3:54 PM PDT Station ID: [id number]
== END 2022-02-03 09:50 | disposition home or self-care (01) ==
LOC: DI 09:49
PROVIDERS: ATTEND Nurse Practitioner Family
DX: M85.89 Other specified disorders of bone density and structure, multiple sites (principal); Z78.0 Asymptomatic menopausal state

== ENCOUNTER 2022-08-11 09:39 | Outpatient (CLI) | payer MEDICARE ==
--- NOTE | 2022-08-11 10:23 | SLEEP CARE CONSULTATION ---
Information from patient questionnaire entered by Bobby Nicholson. I have reviewed and concur with the information entered by Bobby Nicholson. This document represents the service I personally performed and the decisions made by , Jo-Ann Bond ARNP. History of Present Illness Service Date and Time: 08/11/2022 0939 Previous diagnosis: Moderate, Obstructive Sleep Apnea-Hypopnea Syndrome AHI: 22.7 (in 2008) Reason for follow up: annual (LAST SEEN 04/2021) Equipment type: CPAP (RESMED) Equipment obtained from: [employer] (would like different DME) Mask style: Nasal Mask brand: Respironics (Dreamwear) Backup mask available: Yes (old mask) Last cushion change: May [facility]: Yes [facility] additional information: HARRISON GROSS was diagnosed to have moderate, AHI 22.7, obstructive sleep apnea-hypopnea syndrome and returned today for CPAP therapy annual follow-up. Sleep Study - Results Prior sleep studies: Yes Year and Where: 2008 - [facility] CPAP Compliance Data Compliance data discussion: Data from 11/01/2021-04/29/2022: 8 hours 35 minutes; 175/180 days used; 96% compliant; 8 cmH2O; residual AHI 1.8. Subjective Patient concerns: reports: dry mouth, nose, throat (dry mouth). denies: aerophagia, mask discomfort, air blowing in eyes, mask leak noise, condensation in mask/hose, nasal congestion, epistaxis Observed to snore while using device: No Current pressure setting perceived as: comfortable On therapy, patient: reports: sleeping better, awakening more refreshed, being more awake and alert during the day, more rested overall, other (can't sleep without it). denies: drowsiness while driving Initial Isabella Sleepiness Scale score: 1 (in 2008) Current Isabella Sleepiness Scale score: 2 (08/11/22) Physical Exam Vital signs obtained and entered by: SINA SÁNCHEZ Blood Pressure: 110/60 (left arm ) Cuff size: regular Heart Rate: 61 O2 Saturation: 98 Height: 5 ft 8 in Weight: 186 lb Body Mass Index: 28.3 BMI Classification: Overweight Impression and Plan 1. Obstructive Sleep Apnea-Hypopnea Syndrome, moderate, with good treatment compliance and good apnea control. On CPAP therapy, the patient has better sleep quality and is more rested overall. We were unable to obtain current therapy data due to an issue with our SD card download. She has been very compliant in past and she states no change in her use of CPAP in last year. She would like to use a different DME company. I will have my clinical trials data coordinator inform of DME options. A [facility] prescription will then be made. Patient advised to contact this office if further supply problems. Patient also would like to purchase a travel CPAP machine because she is travelling a lot this year and would like the convenience. I will put together a prescription for this. She is aware that she will have to pay out of pocket for travel device. Patient's apnea severity and rationale for treatment to reduce apnea, improve sleep quality and reduce cardiovascular and cerebrovascular events was reviewed. I also reviewed the benefit of consistent device use of CPAP for depression, anxiety and asthma. 2. Obesity, unspecified. Currently patients BMI is 28.3. She states she has lost 50 pounds this last year. Obesity increases the risk of apnea, CPAP pressure requirements and overall health risks especially cardiovascular and diabetes. Thus patient is advised to continue to try to lose weight. * Continue CPAP pressure at 8 cmH2O * Transfer DME * Update supplies * Portable CPAP prescription * Notify me if snoring with mask or feeling that the pressure is too much or too little * Attempt to lose weight * Call this office if any problems using CPAP * Return for follow up in 1 year, or sooner if concerns arise Counseling Topics: Spare mask, Weight loss health impact Visit Type: In Office Time Spent with Patient (minutes): 26 Provider Statement: I spent 100% of the Face to Face Visit with the patient with greater than 50% spent counseling the patient and coordination of care.
[2022-08-11 10:34] VITALS: BP 110/60
== END 2022-08-11 09:40 | disposition home or self-care (01) ==
LOC: SC 09:39
PROVIDERS: ATTEND Nurse Practitioner Family
DX: G47.33 Obstructive sleep apnea (adult) (pediatric) (principal); E66.3 Overweight; Z68.28 Body mass index [BMI] 28.0-28.9, adult
CPT/HCPCS: 99213; G0463; 99212

== ENCOUNTER 2023-01-18 11:06 | Outpatient (CLI) | payer MEDICARE ==
--- NOTE | 2023-01-18 11:37 | Sleep Patient Instructions ---
Sleep Center Visit Summary - Patient Visit Information Reason for Visit: CPAP therapy with new device - Patient Instructions Additional Instructions: You will continue with CPAP therapy with pressure set at 8 cmH2O. We encourage you to continue to try to lose weight. Please follow up with the sleep care office in 1 year. - Clinic Information Contact: [facility] [address] [place] [id number] [email or web address] T: [phone]
--- NOTE | 2023-01-18 11:50 | SLEEP CARE CONSULTATION ---
Information from patient questionnaire entered by Samantha Lloyd. I have reviewed and concur with the information entered by aSmantha Lloyd. This document represents the service I personally performed and the decisions made by me, Jo-Ann Bond ARNP. History of Present Illness Service Date and Time: 01/18/2023 1106 Previous diagnosis: Moderate, Obstructive Sleep Apnea-Hypopnea Syndrome AHI: 22.7 (in 2008) Reason for follow up: first compliance after device update Equipment type: CPAP (RESMED Airsense 10, 12/2022; MACHINE OR SD CARD NEEEDED) Equipment obtained from: Other ([facility]; getting supplies) Mask style: Nasal Backup mask available: Yes (old mask) Last cushion change: monthly Prior sleep studies: Yes Year and Where: 2008 - [facility] HPI additional information: HARRISON GROSS was diagnosed to have moderate, AHI 22.7, obstructive sleep apnea-hypopnea syndrome and returned today for CPAP therapy annual follow-up. Sleep Study - Results Prior sleep studies: Yes Year and Where: 2008 - [facility] Sleep CPAP Compliance Data - Data Reviewed with Patient Average duration of nightly device use: 7 hours 47 minutes Compliance rate %: 93 (37/40 days used) Current pressure setting (cmH2O): 8 Average residual AHI: 0.9 Central apnea: 0.5 Obstructive apnea: 0.3 Average large leak: 5.2 L/min Compliance data discussion: She obtained an [employer] CPAP for when she traveled to [place] for 5 months. Subjective Missed days of use due to: reports: travel (uses travel CPAP now) Patient concerns: reports: dry mouth, nose, throat. denies: aerophagia, mask discomfort, air blowing in eyes, mask leak noise, condensation in mask/hose, nasal congestion, epistaxis Observed to snore while using device: No Current pressure setting perceived as: comfortable On therapy, patient: reports: sleeping better, awakening more refreshed, being more awake and alert during the day, more rested overall. denies: drowsiness while driving Initial [place] Sleepiness Scale score: 1 (in 2008) Current [place] Sleepiness Scale score: 1 () Allergies and Home Medications Known drug allergies: Yes (as listed) Drug allergies reviewed: Yes Home medication list reviewed: Yes (no changes) Allergy and home medication list: Allergies sulfamethoxazole [From Septra] Allergy (Verified 01/17/23 13:49) Rash trimethoprim [From Septra] Allergy (Verified 01/17/23 13:49) Rash fentanyl Adverse Reaction (Verified 01/17/23 13:49) Unknown midazolam [From Versed] Adverse Reaction (Verified 01/17/23 13:49) Unknown Review of Systems Review of systems same as previous: Yes (no changes) Physical Exam Vital signs obtained and entered by: SAMANTHA Corcoran MA Blood Pressure: 120/68 (LEFT ARM) Cuff size: regular Heart Rate: 54 O2 Saturation: 98 Height: 5 ft 8 in Weight: 176 lb 3.2 oz Body Mass Index: 26.8 BMI Classification: Overweight Impression and Plan 1. Obstructive Sleep Apnea-Hypopnea Syndrome, moderate, with good treatment compliance and good apnea control. On CPAP therapy, the patient has better sleep quality and is more rested overall. Patient has significant improvement of their sleep apnea and is satisfied with current CPAP therapy. She has had some dry mouth with the travel machine and since she has been back using her new [employer] Airsense 10. She states the dryness is improving. I advised her to check her settings on the humidifier and adjust as needed. Patient denies problems with nasal congestion, epistaxis, skin irritation or aerophagia. Patient's apnea severity and rationale for treatment to reduce apnea, improve sleep quality and reduce cardiovascular and cerebrovascular events was reviewed. I also reviewed the benefit of consistent device use of CPAP for depression, anxiety and asthma. 2. Overweight, unspecified. Currently patients BMI is 26.8. Obesity increases the risk of apnea, CPAP pressure requirements and overall health risks especially cardiovascular and diabetes. Thus patient is advised to lose weight. * Continue CPAP pressure at 8 cmH2O * Notify me if snoring with mask or feeling that the pressure is too much or too little * Attempt to lose weight * Call this office if any problems using CPAP * Return for follow up in 1 year, or sooner if concerns arise Counseling Topics: Spare mask, Weight loss health impact Visit Type: In Office Time Spent with Patient (minutes): 20 Provider Statement: I spent 100% of the Face to Face Visit with the patient with greater than 50% spent counseling the patient and coordination of care.
[2023-01-18 11:51] VITALS: BP 120/68
== END 2023-01-18 11:07 | disposition home or self-care (01) ==
LOC: SC 11:06
PROVIDERS: ATTEND Nurse Practitioner Family
DX: G47.33 Obstructive sleep apnea (adult) (pediatric) (principal); E66.3 Overweight; Z68.26 Body mass index [BMI] 26.0-26.9, adult
CPT/HCPCS: 99213; G0463; 99212

== ENCOUNTER 2024-01-08 16:11 | Outpatient (CLI) | payer MEDICARE ==
--- NOTE | 2024-01-08 17:50 | XRAY Report ---
Knee 3V RT HISTORY: 73 years of age, RIGHT KNEE PAIN TECHNIQUE: Knee 3V RT COMPARISON: None. 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 No right knee effusion. No acut e fracture or dislocation. Reviewed by: Blanquita Gramajo MD on 01/08/2024 5:48 PM PDT Approved by: Blanquita Gramajo MD on 01/08/2024 5:48 PM PDT Station ID: [id number]
== END 2024-01-08 16:12 | disposition home or self-care (01) ==
LOC: DI 16:11
PROVIDERS: ATTEND Registered Nurse
DX: M17.11 Unilateral primary osteoarthritis, right knee (principal)

== ENCOUNTER 2024-04-16 08:30 | Outpatient (CLI) | payer MEDICARE | END 2024-04-16 08:45 | disposition home or self-care (01) | LOC: LAB.N 08:30 | PROVIDERS: ATTEND Family Medicine | DX: N39.0 Urinary tract infection, site not specified (principal) | CPT/HCPCS: 87086; 87181 ==